=== PATIENT | female | born 1985 | race Caucasian/White ===

== ENCOUNTER 2022-12-16 15:49 | Emergency (ER) | payer SELFPAY ==
[2022-12-16 15:52] VITALS: BP 124/90; PULSE 85; RESP 20; TEMP 36.4; O2SAT 99; BMI 37.5
--- NOTE | 2022-12-16 16:34 | ED_ITS ---
HPI - Skin/Abscess/Foreign Bdy <JACOBO Chairez - Last Filed: 12/16/22 16:56> General Chief complaint: Skin/Abscess/Foreign Body Stated complaint: Allergic Rxn Time Seen by Provider: 12/16/22 16:33 Source: patient Mode of arrival: Ambulatory Limitations: no limitations History of Present Illness HPI narrative: Year old female presents emergency department complaining of a rash this started yesterday at 10:30 in the 1. States she was on an airplane and developed an itchy scalp and then gradually developed blotchy rash all over her torso and back. She is some mild swelling of her hand and took Benadryl which was helpful. She states that she took Hortencia today this is helpful too. She finished a prescription of antibiotics on 12/12/2022-she states this is her 2nd course of antibiotics for UTI, she completed initial course of amoxicillin and then this was followed by nitrofurantoin. Related Data Previous Rx's Medication Instructions Recorded famotidine 20 mg tablet (Pepcid) 20 mg PO DAILY 2 weeks #14 tabs 12/16/22 hydroxyzine HCl 10 mg tablet 10 mg PO TID PRN itching #20 tabs 12/16/22 prednisone 20 mg tablet 40 mg PO DAILY 5 days #10 tabs 12/16/22 Allergies Allergy/AdvReac Type Severity Reaction Status Date / Time No Known Drug Allergies Allergy Verified 12/16/22 15:59 Patient History <JACOBO Chairez - Last Filed: 12/16/22 16:56> Social History Smoking Status: Never smoker Smoking Status: Never smoker alcohol intake frequency: holidays/special occasions only Substance Use Type: does not use Exam <JACOBO Chairez - Last Filed: 12/16/22 16:56> Narrative Exam Narrative: Reviewed vitals signs and nursing notes. General: Pleasant, sitting upright, in no acute distress, well groomed, afebrile HEENT: symmetrical facial expressions, moist mucous membranes, neck is supple, no angioedema or stridor CV: regular rate and rhythm, warm extremities Respiratory: normal work of breathing, without wheezing, tachypnea or hypoxia. GI: abdomen soft, nondistended, without CVA tenderness bilaterally. MSK: moves all extremities, no weakness, normal tone, ambulatory without deficit Skin: brisk capillary refill, patient has urticaria and pruritic area of hives on her torso, edema and erythema to the left hand, some edema to her upper eyelids but without scratchy sensation to throat, angioedema, stridor, or other symptoms of anaphylaxis. Neuro: clear speech and normal cognition, A&O x3, GCS 15, no focal motor or sensation deficits Initial Vital Signs Initial Vital Signs: Vital Signs Temperature 97.6 F 12/16/22 15:52 Pulse Rate 85 12/16/22 15:52 Respiratory Rate 20 12/16/22 15:52 Blood Pressure 124/90 12/16/22 15:52 Pulse Oximetry 99 12/16/22 15:52 Oxygen Delivery Method Room Air 12/16/22 15:52 <Joan Devlin DO - Last Filed: 12/16/22 19:09> Initial Vital Signs Initial Vital Signs: Vital Signs Temperature 97.6 F 12/16/22 15:52 Pulse Rate 85 12/16/22 15:52 Respiratory Rate 20 12/16/22 15:52 Blood Pressure 124/90 12/16/22 15:52 Pulse Oximetry 99 12/16/22 15:52 Oxygen Delivery Method Room Air 12/16/22 15:52 Course <JACOBO Chairez - Last Filed: 12/16/22 16:56> Orders Ordered: Discontinued Medications Famotidine (Famotidine 20 Mg Tablet) 20 mg PO NOW ONE Stop: 12/16/22 16:44 Last Admin: 12/16/22 16:51 Dose: 20 mg Documented By: RB Hydroxyzine Pamoate (Hydroxyzine Pamoate 25 Mg Capsule) 25 mg PO NOW ONE Stop: 12/16/22 16:44 Last Admin: 12/16/22 16:50 Dose: 25 mg Documented By: RB Prednisone (Prednisone 20 Mg Tablet) 60 mg PO NOW ONE Stop: 12/16/22 16:44 Last Admin: 12/16/22 16:51 Dose: 60 mg Documented By: RB Vital Signs Vital signs: Vital Signs - 8 hr 12/16/22 15:52 12/16/22 16:55 Temperature 97.6 F Pulse Rate 85 93 H Respiratory Rate 20 18 Blood Pressure 124/90 115/77 Pulse Oximetry 99 97 Oxygen Delivery Method Room Air <Joan Devlin DO - Last Filed: 12/16/22 19:09> Orders Ordered: Discontinued Medications Famotidine (Famotidine 20 Mg Tablet) 20 mg PO NOW ONE Stop: 12/16/22 16:44 Last Admin: 12/16/22 16:51 Dose: 20 mg Documented By: RB Hydroxyzine Pamoate (Hydroxyzine Pamoate 25 Mg Capsule) 25 mg PO NOW ONE Stop: 12/16/22 16:44 Last Admin: 12/16/22 16:50 Dose: 25 mg Documented By: RB Prednisone (Prednisone 20 Mg Tablet) 60 mg PO NOW ONE Stop: 12/16/22 16:44 Last Admin: 12/16/22 16:51 Dose: 60 mg Documented By: RB Vital Signs Vital signs: Vital Signs - 8 hr 12/16/22 15:52 12/16/22 16:55 Temperature 97.6 F Pulse Rate 85 93 H Respiratory Rate 20 18 Blood Pressure 124/90 115/77 Pulse Oximetry 99 97 Oxygen Delivery Method Room Air MDM - Skin/Abscess/Foreign Bdy <JACOBO Chairez - Last Filed: 12/16/22 16:56> MDM Narrative Medical decision making narrative: Chief Complaint: Hives and itching Multiple etiologies for patient's complaint considered including, but not limited to: Allergic drug reaction, who presents reaction, acute viral illness I have independently reviewed the patient's vital signs and nursing notes as well as prior records if available. On exam, patient has urticaria across the left side of her torso, is raised and pruritic, edema and mild erythema to the left hand with pruritic sensation, patient also complains of some edema eyelids, no evidence, no stridor, posterior pharynx widely patent no pitting lips or oropharynx. She does not have history of medication allergies but this is the 2nd antibiotic she is completed in the last 14 days, she could have a delayed reaction to Macrobid or other hypersensitivity reaction to traveling or acute viral illness. She does not have any upper respiratory symptoms of illness. She was treated today with prednisone 60 mg, she took Hortencia earlier today and Benadryl last night, she was given hydroxyzine, famotidine encouraged to continue taking her leg range day and Benadryl as needed at night with a short course with a taper prednisone as well as famotidine for GI prophylaxis. Social considerations that may affect disposition: none Questions are addressed and there is agreement with the plan and for follow-up. I consulted with the ED attending physician Dr. Devlin as needed for higher level of care considerations and they were available for discussion and recommenda tions regarding plan of care and diagnostic testing. Patient is appropriate for outpatient management. Discharge Plan Departure Patient Disposition: Home Clinical Impression: Urticaria Hypersensitivity Qualifiers: Encounter type: initial encounter Qualified Code(s): T78.40XA - Allergy, unspecified, initial encounter Instructions: DI for General Allergic Reactions, DI for Adverse Drug Reaction -- Allergic Activity Restrictions/Additional Instructions: *You have been diagnosed with hypersensitivity reaction likely an allergic drug reaction but could be an allergic/hypersensitivity reaction to another source. Please take 40 mg of prednisone for the next 4 days and then 20 mg for 2 days thereafter. Take this medicine with food and water, use hydroxyzine throughout the day as needed for itching, I have decreased that dose so will not make you tired. Please take famotidine 20 mg each morning before your prednisone. This will help protect her stomach. Take Hortencia each morning and Benadryl at night for severe itching. I hope you feel better soon, please come back if he develops worsening symptoms or symptoms of a UTI. You may have an allergy to nitrofurantoin/Macrobid. I hope you have a good rest of your trip. Stay hydrated and eat food with your medications other than famotidine, take that on an empty stomach. *What to do: *Please continue to take your regular medications as directed. [ x] New medication prescriptions sent to your pharmacy: [[facility]] [ ] New medication written as a paper prescription [ ] No new medications given *Please call and schedule follow up with your primary care provider in 2-3 days, at least for an update. Let them know you were seen in the Emergency Department for the above problem. We will electronically transmit a record of today's note if your PCP or specialist is in our system. *If you do not have a primary care provider please contact [phone] to establish care with one of the [facility] primary care providers. *Return to the Emergency Department for worsening symptoms, inability to keep liquids down, fever greater than 101F, chills, or other concerning symptom. Prescriptions: New prednisone 20 mg tablet 40 mg PO DAILY 5 Days Qty: 10 0RF Rx Instructions: Take 40 mg for 4 days and then 20 mg for 2 days thereafter hydroxyzine HCl 10 mg tablet 10 mg PO TID PRN (Reason: itching) Qty: 20 0RF famotidine [Pepcid] 20 mg tablet 20 mg PO DAILY 14 Days Qty: 14 0RF Stand Alone Forms: Patient Portal/API <Joan Devlin DO - Last Filed: 12/16/22 19:09> Cosign ED Attending Cosignature Attestation: I was immediately available in the department for consultation. Documentation has been reviewed.
[2022-12-16] MEDS: hydrOXYzine pamoate 25 MG CAPSULE PO (16:50)
[2022-12-16] MEDS: FAMOTIDINE 20 MG TABLET PO (16:51)
[2022-12-16] MEDS: predniSONE 20 MG TABLET 60 MG PO (16:51)
[2022-12-16 16:55] VITALS: BP 115/77; PULSE 93; RESP 18; O2SAT 97
== END 2022-12-16 17:02 | disposition home or self-care (01) ==
PROVIDERS: Emergency Provider Nurse Practitioner Critical Care Medicine
DX: T78.40XA Allergy, unspecified, initial encounter (principal)
CPT/HCPCS: 99283; A9270